=== PATIENT | female | born 1970 | race African-American/Black ===

== ENCOUNTER 2016-04-05 09:06 | Outpatient (RCR) | payer BC ==
[~2016-04-05 09:06] MED LIST: ADDERALL15 MG PO; OXYCONTIN15 MG PO; PHENERGAN 25 TA25 MG PO; ROXICODONE30 MG PO
== END 2016-04-12 09:06 | disposition still patient (30) ==
LOC: MKS.ESL.PT 09:06
DX: M53.82 Other specified dorsopathies, cervical region (principal)

== ENCOUNTER 2017-08-22 08:45 | Outpatient (RCR) | payer BC | END 2017-10-04 | disposition still patient (30) | LOC: MKS.ESL.PT | DX: M54.2 Cervicalgia (principal); G89.29 Other chronic pain; M79.7 Fibromyalgia ==

== ENCOUNTER → 2017-11-06 | Outpatient (CLI) | payer BC | LOC: MHCPAIN 08:18 | DX: G89.29 Other chronic pain (principal); M54.12 Radiculopathy, cervical region; M47.812 Spondylosis without myelopathy or radiculopathy, cervical region | CPT/HCPCS: G0463 ==

== ENCOUNTER → 2019-05-07 | Emergency (ER) | payer BC ==
[2019-05-07 21:16] VITALS: PULSE 45; TEMP 98
== END ==
LOC: COL.ER 20:32
DX: T16.9XXA Foreign body in ear, unspecified ear, initial encounter (principal); X58.XXXA Exposure to other specified factors, initial encounter

== ENCOUNTER → 2019-08-08 | Outpatient (CLI) | payer BC | LOC: COL.RAD 12:30 | DX: G44.229 Chronic tension-type headache, not intractable (principal) ==

== ENCOUNTER 2020-01-23 08:00 | Outpatient (RCR) | payer BC | END 2020-02-05 | disposition home or self-care (01) | LOC: MKS.ESL.PT | DX: M54.2 Cervicalgia (principal); M54.9 Dorsalgia, unspecified ==

== ENCOUNTER 2020-03-19 09:15 | Outpatient (RCR) | payer BC | END 2020-04-12 | disposition home or self-care (01) | LOC: MKS.ESL.PT | DX: M54.2 Cervicalgia (principal); M54.9 Dorsalgia, unspecified | CPT/HCPCS: G0283-GP ==

== ENCOUNTER 2020-11-26 12:45 | Outpatient (RCR) | payer OTHER | END 2021-01-27 | disposition home or self-care (01) | LOC: MKS.ESL.PT | DX: M70.62 Trochanteric bursitis, left hip (principal); M25.512 Pain in left shoulder | CPT/HCPCS: G0283-GP ==

== ENCOUNTER → 2021-01-07 | Outpatient (CLI) | payer OTHER | LOC: COL.RAD 12:01 | DX: G43.709 Chronic migraine without aura, not intractable, without status migrainosus (principal); M50.321 Other cervical disc degeneration at C4-C5 level; M48.02 Spinal stenosis, cervical region | CPT/HCPCS: A9585 ==

== ENCOUNTER 2023-10-15 09:30 | Outpatient (RCR) | payer OTHER ==
[~2023-10-15 09:30] MED LIST changes: +BENTYL 20MG20 MG/TAB PO; +FLAGYL500 MG PO; +PERCOCET 325 MG1 TA2 PO; +ZOFRAN ODT4 MG PO
== END 2023-11-07 | disposition home or self-care (01) ==
LOC: MKS.ESL.PT
DX: S39.012D Strain of muscle, fascia and tendon of lower back, subsequent encounter (principal); M25.462 Effusion, left knee; X58.XXXD Exposure to other specified factors, subsequent encounter

== ENCOUNTER 2024-03-11 09:12 | Emergency (ER) | payer OTHER ==
[~2024-03-11] VITALS: Ht 167.6 cm; Wt 69.1 kg
[2024-03-11 09:21] VITALS: TEMP 98.3
[2024-03-11 13:32] LABS: BASO # 0.1 K/mm3 (0.0-0.2); BASO % 1.1 % (0.0-2.0); EOS # 0.5 K/mm3 (0.0-0.7); EOS % 7.6 % (0.0-4.0); GRAN % 61.7 % (42.2-75.2); HEMATOCRIT 41.3 % (37.0-47.0); HEMOGLOBIN 14.1 g/dl (12.5-16.0); LYMPH # 1.3 K/mm3 (1.2-3.4); MEAN CELL VOLUME 92 fl (80.0-100.0); MEAN CORPUSCULAR HEMOGLOBIN 31 pg (27-31); MEAN CORPUSCULAR HGB CONC 34 g/dl (33.0-37.0); MEAN PLATELET VOLUME 9.1 fl (7.4-10.4); MONO # 0.6 K/mm3 (0.1-0.6); MONO % 9.1 % (1.7-9.3); PLATELET COUNT 283 K/mm3 (130-400); REDCELL DISTRIBUTION WIDTH-CV 11.9 % (11.5-14.5)
[2024-03-11 13:42] LABS: ERYTHROCYTE SEDIMENTATION RATE 64 mm/hr (0-30)
[2024-03-11 13:52] LABS: ALANINE AMINOTRANSFERASE 34 U/L (0-55); ALBUMIN 3.2 g/dL (3.5-5.0); ALKALINE PHOSPHATASE 76 U/L (40-150); ANION GAP 10 mmol/L (7-16); AST,SGOT 18 U/L (5-34); BILIRUBIN,TOTAL 0.4 mg/dL (0.2-1.2); BLOOD UREA NITROGEN 13 mg/dL (10-20); C-REACTIVE PROTEIN 3.81 mg/dL (0.00-0.50); CALCIUM 9.3 mg/dL (8.4-10.2); CHLORIDE 109 mEq/L (98-107); CREATININE, serum 1.04 mg/dL (0.57-1.11); GLUCOSE 111 mg/dL (70-99); SODIUM 141 mEq/L (136-145); TOTAL PROTEIN 7.8 g/dl (6.2-8.1)
[2024-03-11 14:00] LABS: TROPONIN-I < 0.010 ng/mL (0.00-0.033)
[2024-03-11] MEDS ORDERED: DIFLUCAN200 MG PO (16:21)
[2024-03-11] MEDS ORDERED: Fluconazole 100 MG TAB PO ONE (16:30)
[2024-03-11 16:35] VITALS: BP 130/70; PULSE 68
== END 2024-03-11 16:35 | disposition home or self-care (01) ==
LOC: COL.ER 09:12
PROVIDERS: Emergency Medicine
DX: B38.9 Coccidioidomycosis, unspecified (principal); R21 Rash and other nonspecific skin eruption; J18.9 Pneumonia, unspecified organism; R79.82 Elevated C-reactive protein (CRP); R70.0 Elevated erythrocyte sedimentation rate; Z87.891 Personal history of nicotine dependence